=== PATIENT | female | born 1975 | race Caucasian/White ===

== ENCOUNTER → 2021-08-22 | Outpatient (CLI) | payer OTHER ==
[~2021-08-22] MED LIST: APRESOLINE25 MG PO; AUGMENTIN 875-875 MG PO; NORMODYNE,TRAN200 MG PO; NORVASC10 MG PO
== END | disposition home or self-care (01) ==
LOC: LAB 16:32
PROVIDERS: ATTEND Family Medicine
DX: N18.30 Chronic kidney disease, stage 3 unspecified (principal)